=== PATIENT | male | born 1980 | race Caucasian/White ===

== ENCOUNTER 2020-02-24 08:52 | Outpatient (REF) | payer BC, SELFPAY ==
--- NOTE | 2020-02-24 09:00 | MR_ITS ---
EXAMINATION: MRI LEFT SHOULDER WITHOUT CONTRAST CLINICAL INFORMATION: Left shoulder pain. COMPARISON: Radiograph dated 01/11/2020 TECHNIQUE: MR images of the shoulder were obtained on a 1.5 Belle high-field strength scanner without intravenous contrast material. FINDINGS: ROTATOR CUFF: Intact. No muscle atrophy or fatty infiltration. BICEPS: Normal CORACOACROMIAL ARCH: The undersurface of the acromion is remodeled, consistent with prior acromioplasty. Cortical irregularity is evident at the acromial margin of the AC joint, likely due to prior debridement.No subacromial subdeltoid bursitis. LABRUM/CAPSULE: A blunted, small appearance of the posterior and inferior labrum is likely due in part to developmental variation. A superimposed degenerative tear of the inferior labrum is suspected between the anteroinferior 5 o'clock position and the posteroinferior 7 o'clock position. Labrum is otherwise unremarkable. Joint capsule is normal. GLENOHUMERAL JOINT/MARROW: There is mild chondral thinning and fissuring at the glenoid inferiorly with small glenoid marginal osteophytes. Additional mild chondral thinning and surface irregularity are present at the humeral head anterosuperiorly and superomedially. There is a 1.2 x 0.5 x 1.3 cm low signal intensity loose body in the anterior recess of the joint along the anterior glenoid margin. Smaller low signal intensity loose bodies in the axillary pouch cannot be excluded. MR/MR shoulder LT wo con IMPRESSION: 1. A 1.3 cm low signal intensity loose body is present in the anterior joint recess. 2. 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 3. Status post acromioplasty. 4. Normal rotator cuff.
== END 2020-02-24 08:53 | disposition home or self-care (01) ==
LOC: HO.MRI 08:52
PROVIDERS: PCP Internal Medicine; Visit Provider Internal Medicine
DX: M25.512 Pain in left shoulder (principal)
CPT/HCPCS: 73221

== ENCOUNTER 2020-04-11 08:37 | Emergency (ER) | payer BC, SELFPAY ==
--- NOTE | 2020-04-11 | ECG_ITS ---
Test Reason : CP Blood Pressure : / mmHG Vent. Rate : 080 BPM Atrial Rate : 080 BPM P-R Int : 140 ms QRS Dur : 104 ms QT Int : 388 ms P-R-T Axes : 059 066 045 degrees QTc Int : 447 ms Normal sinus rhythm with sinus arrhythmia Normal ECG When compared with ECG of 03-JAN-2020 10:03, No significant change was found Referred By: Generic ED Physician Electronically Signed By:Jeremy Hannon
[2020-04-11 08:52] VITALS: BP 147/95; PULSE 89; RESP 18; TEMP 36.5; O2SAT 98; BMI 29.0
--- NOTE | 2020-04-11 09:15 | XR_ITS ---
EXAMINATION: XR CHEST CLINICAL INFORMATION: Chest pain COMPARISON: 12/01/2019 TECHNIQUE: Frontal view of the chest was obtained. FINDINGS: Normal cardiac and mediastinal silhouette. Lungs are clear. No focal consolidation, effusion, edema pneumothorax. Stable small likely calcified nodule in the left lower lobe. XR/XR chest 1V IMPRESSION: No evidence of acute cardiopulmonary process.
--- NOTE | 2020-04-11 09:15 | ED_ITS ---
HPI - Chest Pain General Chief Complaint: Chest Pain Stated Complaint: chest tightness,numbness left arm Time Seen by Provider: 04/11/20 09:14 Source: patient Mode of arrival: ambulatory Limitations: no limitations History of Present Illness MD complaint: chest pain Pertinent past history: other (similar episodes in past seen Cardiology negative workup) Onset (ago): hour(s) (2.5) Timing of current episode: constant Prior episodes: Yes Onset: during rest Pain location: left chest Pain radiation: left arm Severity: mild Quality: tightness Relieving factors: nothing Exacerbating factors: inspiration and movement Context: other (starts after he takes his testosterone injection has happened in the past as well) Associated symptoms: dyspnea Treatment prior to arrival: none Related Data Allergies Allergy/AdvReac Type Severity Reaction Status Date / Time FLU VACCINE AdvReac Rash Uncoded 04/11/20 08:59 Review of Systems Review of Systems: Constitutional : No Weight loss, No Fever, No Chills ENT/Mouth : No sore throat, No Rhinorrhea Eyes: No Eye Pain, No Swelling Cardiovascular : pos Chest Pain, pos SOB, no Dyspnea on Exertion, No Orthopnea, No Edema, No Palpitations Respiratory : No Cough, No Sputum Gastrointestinal : pos Nausea, No Vomiting, No Diarrhea, No abdominal Pain, No Hematochezia, No Melena Genitourinary : No Dysuria, No Urinary Frequency Musculoskeletal : No joint pain, No Myalgias, No Joint Swelling Skin : No Skin Lesions, No rash Neuro : No Weakness, No Numbness, No Dizziness, No Headache Psych : No Anxiety/Panic, No Depression Heme/Lymph: No Bruising, No Lymphadenopathy Endocrine : No Polyuria, No Polydipsia All other systems reviewed and are negative [facility] Past Medical History Attestation statement: The following information was validated with the patient. Medical History Hypertension Surgical History H/O shoulder surgery Social History Social History (Updated 04/11/20 @ 09:37 by Devorah Partida DO) Alcohol intake: never Smoking Status: Never smoker Use of substances other than those prescribed or required for medical reasons: No Advance Directives: No Advance Directives Information Provided: No Physical Exam Vital Signs: Vital Signs: Last Vital Signs Temp 97.7 F 12/14/20 08:52 Pulse 92 04/11/20 09:29 Resp 18 04/11/20 08:52 BP 146/99 H 04/11/20 09:29 Pulse Ox 97 04/11/20 09:29 Body Mass Index 29.0 Appearance: Alert. Oriented X3. No acute distress. Eyes: Pupils equal, round and reactive to light. ENT: Pharynx normal. Neck: Normal inspection. Neck supple. CVS: Normal heart rate and rhythm. Pulses normal. Respiratory: No respiratory distress. Breath sounds normal. Chest: ttp along L pectoralis Abdomen: Soft and nontender. Skin: Skin warm and dry. Normal skin color. Normal skin turgor. Extremities: No lower extremity edema. No calf ttp Neuro: Oriented X 3. No motor deficit. No sensory deficit. Course Course Course Narrative: negative workup, negative EKG, troponin negative at almost 3 hours aamir, neg ddimer - stable for DC MDM - Chest Pain MDM Narrative Medical decision making narrative: 40 yo male with HTN and hx of chest pain now associates it with his testosterone injections, will need labs, EKG, CXR, troponin, ddimer - seems like it could be [facility] has had this worked up in the past with negative results, seems very atypical for ACS Lab Data Result diagrams: 04/11/20 09:38 04/11/20 09:38 Labs: Lab Results 04/11/20 04/11/20 04/11/20 Range/Units 09:38 09:38 09:38 WBC 9.7 (4.8-10.8) X10*3/uL RBC 5.62 (4.60-5.80) X10*6/uL Hgb 16.4 (14.0-18.0) g/dl Hct 47.5 (42-52) % MCV 84.5 (80-98) fL MCH 29.2 (27.0-33.0) pg MCHC 34.5 (31.0-36.0) g/dl RDW 12.6 (11.0-16.0) % Plt Count 328 (160-400) X10*3/uL MPV 8.9 L (9.4-12.4) fL Immature Gran % (Auto) 0.2 (0.0-0.4) % Neut % (Auto) 68.5 (45-73) % Lymph % (Auto) 19.8 L (20-40) % Nuckolls % (Auto) 8.5 (2-11) % Eos % (Auto) 2.8 (0-4) % Baso % (Auto) 0.2 (0-2) % Lymph # (Auto) 1.9 (1.2-4.9) X10*3/uL [place]uckolls # (Auto) 0.8 (0.1-1.2) X10*3/uL Eos # (Auto) 0.3 (0.0-0.4) X10*3/uL Baso # (Auto) 0.0 (0.0-0.2) X10*3/uL Abs Immat Gran (auto) 0.02 (0.00-0.03) X10*3/uL Absolute Neuts (auto) 6.6 (2.0-8.3) X10*3/uL Absolute Nucleated RBC 0.000 (0.0-0.012) X10*3/uL Nucleated RBC % (auto) 0.0 (0.0-0.2) /100WBC D-Dimer < 200 NG/ML Sodium 139 (135-145) mmol/L Potassium 4.3 (3.3-5.1) mmol/l Chloride 107 (96-108) mmol/L Carbon Dioxide 23 (22-29) mmol/L Anion Gap 13 (12-20) BUN 8 L (9-16) mg/dL Creatinine 0.89 (0.5-1.4) mg/dL Estim Creat Clear Calc 135.7 Estimated GFR > 60 Random Glucose 103 (60-115) mg/dL Calcium 9.3 (8.4-10.2) mg/dL Magnesium 2.1 (1.6-2.6) mg/dL Total Bilirubin 0.4 (0.0-1.0) mg/dL Direct Bilirubin 0.2 (0.0-0.5) mg/dL AST 20 (5-37) U/L ALT 41 H (0-40) U/L Alkaline Phosphatase 69 (39-117) U/L Troponin I High Sens (<3.5-35.0) ng/L Total Protein 7.1 (6.5-8.0) g/dL Albumin 4.9 (3.5-5.0) g/dL Lipase 31 (8-78) U/L 04/11/20 Range/Units 09:38 WBC (4.8-10.8) X10*3/uL RBC (4.60-5.80) X10*6/uL Hgb (14.0-18.0) g/dl Hct (42-52) % MCV (80-98) fL MCH (27.0-33.0) pg MCHC (31.0-36.0) g/dl RDW (11.0-16.0) % Plt Count (160-400) X10*3/uL MPV (9.4-12.4) fL Immature Gran % (Auto) (0.0-0.4) % Neut % (Auto) (45-73) % Lymph % (Auto) (20-40) % Nuckolls % (Auto) (2-11) % Eos % (Auto) (0-4) % Baso % (Auto) (0-2) % Lymph # (Auto) (1.2-4.9) X10*3/uL Nuckolls # (Auto) (0.1-1.2) X10*3/uL Eos # (Auto) (0.0-0.4) X10*3/uL Baso # (Auto) (0.0-0.2) X10*3/uL Abs Immat Gran (auto) (0.00-0.03) X10*3/uL Absolute Neuts (auto) (2.0-8.3) X10*3/uL Absolute Nucleated RBC (0.0-0.012) X10*3/uL Nucleated RBC % (auto) (0.0-0.2) /100WBC D-Dimer NG/ML Sodium (135-145) mmol/L Potassium (3.3-5.1) mmol/l Chloride (96-108) mmol/L Carbon Dioxide (22-29) mmol/L Anion Gap (12-20) BUN (9-16) mg/dL Creatinine (0.5-1.4) mg/dL Estim Creat Clear Calc Estimated GFR Random Glucose (60-115) mg/dL Calcium (8.4-10.2) mg/dL Magnesium (1.6-2.6) mg/dL Total Bilirubin (0.0-1.0) mg/dL Direct Bilirubin (0.0-0.5) mg/dL AST (5-37) U/L ALT (0-40) U/L Alkaline Phosphatase (39-117) U/L Troponin I High Sens < 3.5 (<3.5-35.0) ng/L Total Protein (6.5-8.0) g/dL Albumin (3.5-5.0) g/dL Lipase (8-78) U/L ECG Data ECG #1: Attestation: I personally reviewed and interpreted this ECG as follows: ECG interpretation date: 04/11/20 Interpretation: Rate: 80 Rhythm: NSR Ech[place]: normal Normal P waves. Normal SUPRIYA. Normal QRS complex. ST T wave : normal qTC: normal prior studies: no acute ischemia The study has been interpreted contemporaneously by me. . Discharge Plan Discharge Clinical Impression: Atypical chest pain Patient Disposition: Home, Self-Care Instructions: Chest Pain (ED) Additional Instructions: return to ED for any worsening symptoms or concerns hold your testosterone shots until you discuss with your doctor Referrals: Aamir Can MD [Primary Care Provider] - 1 day Stand Alone Forms: Work/School Release
[2020-04-11 09:29] VITALS: BP 146/99; PULSE 92; O2SAT 97
[2020-04-11 09:47] LABS: MANUAL DIFF FLAG NO
[2020-04-11 09:50] LABS: Basophils Percent Auto 0.2 % (0-2); Eosinophils Absolute Auto 0.3 X10*3/uL (0.0-0.4); Eosinophils Percent Auto 2.8 % (0-4); Hematocrit 47.5 % (42-52); Hemoglobin 16.4 g/dl (14.0-18.0); Imm Gran Abs Auto 0.02 X10*3/uL (0.00-0.03); Imm Gran Pct Auto 0.2 % (0.0-0.4); Lymphocytes Absolute Auto 1.9 X10*3/uL (1.2-4.9); Lymphocytes Percent Auto 19.8 % (20-40); Mean Corpuscular HGB Conc 34.5 g/dl (31.0-36.0); Mean Corpuscular Hemoglobin 29.2 pg (27.0-33.0); Mean Corpuscular Volume 84.5 fL (80-98); Mean Platelet Volume 8.9 fL (9.4-12.4); Monocytes Absolute Auto 0.8 X10*3/uL (0.1-1.2); Monocytes Percent Auto 8.5 % (2-11); Neutrophils Absolute Auto 6.6 X10*3/uL (2.0-8.3); Neutrophils Percent Auto 68.5 % (45-73); Platelet Count 328 X10*3/uL (160-400); Red Blood Count 5.62 X10*6/uL (4.60-5.80); Red Cell Distribution Width 12.6 % (11.0-16.0); White Blood Count 9.7 X10*3/uL (4.8-10.8)
[2020-04-11 10:04] LABS: D Dimer < 200 NG/ML
[2020-04-11 10:12] LABS: Alanine Aminotransferase 41 U/L (0-40); Albumin Level 4.9 g/dL (3.5-5.0); Alkaline Phosphatase 69 U/L (39-117); Anion Gap 13 (12-20); Aspartate Amino Transferase 20 U/L (5-37); Bilirubin Direct 0.2 mg/dL (0.0-0.5); Bilirubin Total 0.4 mg/dL (0.0-1.0); Blood Urea Nitrogen 8 mg/dL (9-16); Calcium 9.3 mg/dL (8.4-10.2); Carbon Dioxide 23 mmol/L (22-29); Chloride 107 mmol/L (96-108); Creatinine Clr Calc Pharmacy 135.7; Estimated Glomerular Filt Rate > 60; Glucose Random 103 mg/dL (60-115); Lipase 31 U/L (8-78); Magnesium 2.1 mg/dL (1.6-2.6); Potassium 4.3 mmol/l (3.3-5.1); Sodium 139 mmol/L (135-145); Total Protein 7.1 g/dL (6.5-8.0)
[2020-04-11 10:19] LABS: Troponin-I High Sensitivity < 3.5 ng/L (<3.5-35.0)
[2020-04-11 10:38] VITALS: BP 145/88; PULSE 88; O2SAT 98
== END 2020-04-11 10:40 | disposition home or self-care (01) ==
PROVIDERS: Emergency Provider Emergency Medicine; PCP Internal Medicine
DX: R07.89 Other chest pain (principal); I10 Essential (primary) hypertension
CPT/HCPCS: 36415; 71045; 80048; 80076; 83690; 83735; 84484; 85025; 85379; 93005; 99284

== ENCOUNTER 2020-04-15 10:44 | Outpatient (REF) | payer BC, SELFPAY ==
[2020-04-21 10:57] LABS: Testosterone, Free 98.8 pg/mL (35.0-155.0); Testosterone, Total 417 ng/dL (250-1100)
== END 2020-04-15 10:45 | disposition home or self-care (01) ==
LOC: HO.MANLDS 10:44
PROVIDERS: PCP Internal Medicine; Visit Provider Physician Assistant
DX: Z79.890 Hormone replacement therapy (principal)
CPT/HCPCS: 84402; 84403

== ENCOUNTER 2021-04-07 11:56 | Emergency (ER) | payer BC, SELFPAY ==
[2021-04-07 12:11] VITALS: BP 142/107; PULSE 99; RESP 16; TEMP 36.8; O2SAT 97; BMI 31.8
--- NOTE | 2021-04-07 12:21 | ECG_ITS ---
Test Reason : CHEST PAIN Blood Pressure : / mmHG Vent. Rate : 085 BPM Atrial Rate : 085 BPM P-R Int : 142 ms QRS Dur : 100 ms QT Int : 380 ms P-R-T Axes : 049 055 036 degrees QTc Int : 452 ms Normal sinus rhythm Normal ECG When compared with ECG of 11-APR-2020 09:07, No significant change was found Referred By: Generic ED Physician Electronically Signed By:Jeremy Hannon
--- NOTE | 2021-04-07 16:44 | ED_ITS ---
HPI - Chest Pain General Chief Complaint: Chest Pain Stated Complaint: chest pain into l arm Time Seen by Provider: 04/07/21 16:44 Source: patient Mode of arrival: ambulatory Limitations: no limitations History of Present Illness HPI narrative: Patient with no significant past medical history he used to have borderline hypertension was taking lisinopril which was stopped last year per PCP as blood pressure was well controlled after losing weight. Since yesterday patient was doing weightlifting and noticed pain in the left pectoral area especially on movement and taking deep breath and palpation pain also was feeling in the left shoulder. Also patient noticed his heart rate was fluctuating between 60-110. no syncope or dizziness Related Data Allergies Allergy/AdvReac Type Severity Reaction Status Date / Time FLU VACCINE AdvReac Rash Uncoded 04/11/20 08:59 Review of Systems Review of Systems: Yes all other systems are reviewed and are negative [facility] Past Medical History Medical History Hypertension Surgical History H/O shoulder surgery Social History Social History Alcohol intake: never Advance Directives: No Advance Directives Information Provided: Yes Physical Exam Vital Signs: Vital Signs: Last Vital Signs Temp 98.3 F 04/07/21 12:11 Pulse 73 04/07/21 17:06 Resp 16 04/07/21 17:06 BP 152/101 H 04/07/21 17:06 Pulse Ox 97 04/07/21 12:11 BMI result Body Mass Index 31.8 Appearance: Alert. Oriented X3. No acute distress. ENT: Pharynx normal. Oral Mucosa moist Neck: Normal inspection. Neck supple. CVS: Normal heart rate and rhythm. Pulses normal. No murmur rub or gallop occasional PACs Respiratory: No respiratory distress. Equal air entry bilateral, no wheezing/rales/rhonchi left anterior chest wall tenderness++ Abdomen: Soft and nontender. Bowel sounds are present, no mass palpable, no CVA tenderness Skin: Skin warm and dry. Normal skin color. Normal skin turgor. Extremities: No lower extremity edema. No calf tenderness Neuro: Oriented X 3. MDM - Chest Pain MDM Narrative Medical decision making narrative: Patient with atypical muscular left chest wall pain during stay in the ER patient had skipped beats without any dizziness or syncope patient advised to follow with elementary supervisor for further evaluation. Patient denies any history of sudden cardiac . Patient's blood pressure improved to 142/85 doing stay in the ER advised to follow-up with PCP /cardio Medical Records Data Attestation: I reviewed the patient's medical records. Lab Data Attestation: I reviewed the patient's lab results. Result diagrams: 04/07/21 17:04 04/07/21 17:04 Labs: Lab Results 04/07/21 04/07/21 04/07/21 Range/Units 17:04 17:04 17:04 WBC 10.5 (4.8-10.8) X10*3/uL RBC 5.28 (4.60-5.80) X10*6/uL Hgb 15.6 (14.0-18.0) g/dl Hct 45.1 (42.0-52.0) % MCV 85.4 (80.0-98.0) fL MCH 29.5 (27.0-33.0) pg MCHC 34.6 (31.0-36.0) g/dl RDW 13.3 (11.0-16.0) % Plt Count 279 (160-400) X10*3/uL MPV 8.8 L (9.4-12.4) fL Immature Gran % (Auto) 0.3 (0.0-0.4) % Neut % (Auto) 71.7 (45-73) % Lymph % (Auto) 19.6 L (20-40) % [place] % (Auto) 6.9 (2-11) % Eos % (Auto) 1.3 (0-4) % Baso % (Auto) 0.2 (0-2) % Lymph # (Auto) 2.1 (1.2-4.9) X10*3/uL [place] # (Auto) 0.7 (0.1-1.2) X10*3/uL Eos # (Auto) 0.1 (0.0-0.4) X10*3/uL Baso # (Auto) 0.0 (0.0-0.2) X10*3/uL Abs Immat Gran (auto) 0.03 (0.00-0.03) X10*3/uL Absolute Neuts (auto) 7.5 (2.0-8.3) x10*3/uL Absolute Nucleated RBC 0.000 (0.0-0.012) X10*3/uL Nucleated RBC % (auto) 0.0 (0.0-0.2) /100WBC Sodium 140 (135-145) mmol/L Potassium 4.1 (3.3-5.1) mmol/L Chloride 108 (96-108) mmol/L Carbon Dioxide 24 (22-29) mmol/L Anion Gap 12 (12-20) BUN 13 (9-16) mg/dL Creatinine 0.85 (0.5-1.4) mg/dL Estim Creat Clear Calc 142.8 Estimated GFR > 60 Random Glucose 93 (60-115) mg/dL Calcium 10.1 D (8.4-10.2) mg/dL Troponin I High Sens < 3.5 (<3.5-35.0) ng/L ECG Data ECG #1: Attestation: I personally reviewed and interpreted this ECG as follows: Interpretation: Normal sinus rhythm heart rate is 85 beats per minute normal interval normal axis no acute ST-T changes no acute skin Discharge Plan Discharge Clinical Impression: Musculoskeletal chest pain, Essential hypertension Patient Disposition: Home, Self-Care Instructions: Hypertension (ED), Chest Wall Pain (ED) Additional Instructions: Check blood pressure at home if it is higher than 140/90 start taking your blood pressure medication Your pain is likely musculoskeletal take Tylenol/ibuprofen for pain You have some skipped beats etiology not very clear which is not life- threatening. Report to the ER/PCP if you have passing out episode Avoid salt and caffeine drinks Referrals: Jeremy Hannon MD [Physician] - 1 week Interventions: ED Discharge Assessment Last Done: 04/07/21 18:16 Discharge Date/Time: 04/07/21 18:16
[2021-04-07 17:06] VITALS: BP 152/101; PULSE 73; RESP 16
[2021-04-07 17:08] LABS: Basophils Percent Auto 0.2 % (0-2); Eosinophils Absolute Auto 0.1 X10*3/uL (0.0-0.4); Eosinophils Percent Auto 1.3 % (0-4); Hematocrit 45.1 % (42.0-52.0); Hemoglobin 15.6 g/dl (14.0-18.0); Imm Gran Abs Auto 0.03 X10*3/uL (0.00-0.03); Imm Gran Pct Auto 0.3 % (0.0-0.4); Lymphocytes Absolute Auto 2.1 X10*3/uL (1.2-4.9); Lymphocytes Percent Auto 19.6 % (20-40); MANUAL DIFF FLAG NO; Mean Corpuscular HGB Conc 34.6 g/dl (31.0-36.0); Mean Corpuscular Hemoglobin 29.5 pg (27.0-33.0); Mean Corpuscular Volume 85.4 fL (80.0-98.0); Mean Platelet Volume 8.8 fL (9.4-12.4); Monocytes Absolute Auto 0.7 X10*3/uL (0.1-1.2); Monocytes Percent Auto 6.9 % (2-11); Neutrophils Absolute Auto 7.5 x10*3/uL (2.0-8.3); Neutrophils Percent Auto 71.7 % (45-73); Platelet Count 279 X10*3/uL (160-400); Red Blood Count 5.28 X10*6/uL (4.60-5.80); Red Cell Distribution Width 13.3 % (11.0-16.0); White Blood Count 10.5 X10*3/uL (4.8-10.8)
[2021-04-07 17:30] LABS: Troponin-I High Sensitivity < 3.5 ng/L (<3.5-35.0)
[2021-04-07 17:32] LABS: Anion Gap 12 (12-20); Blood Urea Nitrogen 13 mg/dL (9-16); Calcium 10.1 mg/dL (8.4-10.2); Carbon Dioxide 24 mmol/L (22-29); Chloride 108 mmol/L (96-108); Creatinine Clr Calc Pharmacy 142.8; Estimated Glomerular Filt Rate > 60; Glucose Random 93 mg/dL (60-115); Potassium 4.1 mmol/L (3.3-5.1); Sodium 140 mmol/L (135-145)
== END 2021-04-07 18:16 | disposition home or self-care (01) ==
PROVIDERS: Emergency Provider Internal Medicine; PCP Internal Medicine
DX: R07.89 Other chest pain (principal); I10 Essential (primary) hypertension; Z79.899 Other long term (current) drug therapy
CPT/HCPCS: 36415; 80048; 84484; 85025; 93005; 99283

== ENCOUNTER 2022-10-02 12:18 | Outpatient (REF) | payer BC, SELFPAY ==
[2022-10-02 18:02] LABS: MANUAL DIFF FLAG NO
[2022-10-02 18:27] LABS: Basophils Percent Auto 0.1 % (0-2); Eosinophils Absolute Auto 0.2 X10*3/uL (0.0-0.4); Hematocrit 42.6 % (42.0-52.0); Hemoglobin 14.1 g/dl (14.0-18.0); Imm Gran Abs Auto 0.03 X10*3/uL (0.00-0.03); Imm Gran Pct Auto 0.4 % (0.0-0.4); Lymphocytes Absolute Auto 1.8 X10*3/uL (1.2-4.9); Lymphocytes Percent Auto 26.5 % (20-40); Mean Corpuscular HGB Conc 33.1 g/dl (31.0-36.0); Mean Corpuscular Hemoglobin 29.5 pg (27.0-33.0); Mean Corpuscular Volume 89.1 fL (80.0-98.0); Monocytes Absolute Auto 0.6 X10*3/uL (0.1-1.2); Monocytes Percent Auto 8.5 % (2-11); Neutrophils Absolute Auto 4.1 x10*3/uL (2.0-8.3); Neutrophils Percent Auto 61.5 % (45-73); Platelet Count 280 X10*3/uL (160-400); Red Blood Count 4.78 X10*6/uL (4.60-5.80); Red Cell Distribution Width 13.8 % (11.0-16.0); White Blood Count 6.7 X10*3/uL (4.8-10.8)
[2022-10-03 04:07] LABS: Alanine Aminotransferase 64 U/L (0-40); Albumin Level 4.3 g/dL (3.5-5.0); Alkaline Phosphatase 67 U/L (39-117); Anion Gap 12 (12-20); Aspartate Amino Transferase 25 U/L (5-37); Bilirubin Total 0.8 mg/dL (0.0-1.0); Blood Urea Nitrogen 10 mg/dL (9-16); Calcium 9.6 mg/dL (8.4-10.2); Carbon Dioxide 25 mmol/L (22-29); Chloride 108 mmol/L (96-108); Cholesterol 220 mg/dL; Estimated Glomerular Filt Rate > 60; Glucose Random 84 mg/dL (60-115); HDL Cholesterol 42 mg/dL; Iron 100 mcg/dL (45-160); LDL Cholesterol Calculated 159 mg/dl; Magnesium 2.2 mg/dL (1.6-2.6); Percent Iron Saturation 37 % (15-50); Potassium 4.2 mmol/L (3.3-5.1); Sodium 141 mmol/L (135-145); Total Iron Binding Capacity 273 mcg/dL (228-428); Total Protein 6.3 g/dL (6.5-8.0); Triglycerides 99 mg/dL; Unsaturated Iron Binding 173 ug/dL
[2022-10-03 04:36] LABS: Ferritin 297 ng/mL (20-250); Free T4 (Free Thyroxine) 0.77 ng/dL (0.71-1.85); Prostate Specific Antigen 0.36 ng/mL (<0.05-4.0); Thyroid Stimulating Hormone 1.03 uIU/mL (0.32-4.0); Vitamin B12 289 pg/mL (200-900); Vitamin D 25-OH Total 27.4 ng/mL (>30)
[2022-10-03 05:14] LABS: Estimated Average Glucose 97 mg/dL
[2022-10-06 01:43] LABS: Zinc 70 mcg/dL (60-130)
[2022-10-06 12:59] LABS: Vitamin B6 17.5 ng/mL (2.1-21.7)
[2022-10-09 17:48] LABS: Testosterone, Free 45.1 pg/mL (35.0-155.0); Testosterone, Total 255 ng/dL (250-1100)
== END 2022-10-02 12:19 | disposition home or self-care (01) ==
LOC: HO.MANLDS 12:18
PROVIDERS: Visit Provider Physician Assistant
DX: Z00.00 Encounter for general adult medical examination without abnormal findings (principal); Z12.5 Encounter for screening for malignant neoplasm of prostate; R53.83 Other fatigue; K14.1 Geographic tongue; Z83.3 Family history of diabetes mellitus; Z82.49 Family history of ischemic heart disease and other diseases of the circulatory system
CPT/HCPCS: 36415; 80053; 80061; 82306; 82607; 82728; 82746; 83036; 83540; 83735; 84153; 84207; 84402; 84403; 84439; 84443; 84630; 85025

== ENCOUNTER 2024-10-19 10:24 | Emergency (ER) | payer BC, SELFPAY ==
--- NOTE | ~2024-10-19 | XR_ITS ---
EXAMINATION: XR CHEST CLINICAL INFORMATION: chest pain COMPARISON: 04/11/2020 TECHNIQUE: 2 views of the chest were obtained. FINDINGS: The cardiac, hilar, and mediastinal contours are normal. On the lateral projection, there is minimal blunting of the left posterior costophrenic sulcus, suggestive of tiny effusion. The lungs are otherwise clear bilaterally. There is no focal osseous or soft tissue abnormality. XR/XR chest 2V IMPRESSION: 1. Suggestion of tiny left pleural effusion. 2. Otherwise, lungs appear clear. Electronically signed by: Josef Phelps MD 10/19/2024 11:30 AM EDT
--- NOTE | ~2024-10-19 | CT_ITS ---
CLINICAL HISTORY: Carotid dissection? swelling cracked his own neck. --- Additional Notes or Special Instructions: carotid dissection? CT Head without contrast. CT angiography head and neck with contrast. 3D Postprocessing. Comparison: None provided Findings: HEAD CT: No intra-axial mass, midline shift, hydrocephalus, or acute hemorrhage. No significant atrophy-like change or white matter disease. The visualized paranasal sinuses and mastoid air cells are normal. The orbits are within normal limits. There is no acute fracture. HEAD AND NECK CTA: Aortic arch and cervical great vessels are patent. Intracranial arteries are patent. No aneurysm, dissection, or occlusion. No abnormal intracranial enhancement. The visualized thyroid gland is unremarkable. No cervical mass or fluid collection. Lung apices clear. No acute fracture. IMPRESSION: 1. Unremarkable head CT. 2. Patent head and neck CTA. This document has been electronically signed by: Tyler Uriostegui MD on 10/19/2024 20:13:13
--- NOTE | 2024-10-19 10:26 | ECG_ITS ---
Test Reason : cp Blood Pressure : */* mmHG Vent. Rate : 69 BPM Atrial Rate : 69 BPM P-R Int : 144 ms QRS Dur : 98 ms QT Int : 392 ms P-R-T Axes : 30 16 27 degrees QTcB Int : 420 ms Normal sinus rhythm with sinus arrhythmia Normal ECG When compared with ECG of 07-Apr-2021 12:37, No significant change was found Referred By: Generic ED Physician Electronically Signed By: MAYA TAYLOR
[2024-10-19 10:51] VITALS: BP 151/97; PULSE 73; RESP 18; TEMP 36.8; O2SAT 97; BMI 32.9
--- NOTE | 2024-10-19 10:55 | ED_ITS ---
HPI - General Adult General Chief complaint: Chest Pain Stated complaint: Chest Pain Pain in Jaw since 0530 Time Seen by Provider: 10/19/24 13:07 Source: patient Mode of arrival: ambulatory Limitations: no limitations History of Present Illness ED Provider: Peter Rick HPI narrative: 44 yold male past medical history of shoulder rotator cuff repair labrum repair, cervical spine fusion presents to ED for left jaw left shoulder left chest pain that happened suddenly while driving to a . Patient denies any pleurisy, calf pain, weakness or dizziness. Patient presently is asymptomatic. Patient states he has not episode once a year and has had multiple cardiac workup that was normal. Patient denies any history of drug use. Related Data Allergies Allergy/AdvReac Type Severity Reaction Status Date / Time FLU VACCINE AdvReac Rash Uncoded 10/19/24 10:54 Review of Systems 2 Review of Systems: Resolved chest pain Yes all other systems are reviewed and are negative PMFSH Past Medical History Medical History Hypertension Surgical History H/O shoulder surgery Social History Social History Alcohol intake: never Smoked in Last 30 Days: Yes Use of substances other than those prescribed or required for medical reasons: Yes Substance Use Type: Marijuana Substance Use Frequency: Occasionally Advance Directives: No Advance Directives Information Provided: Yes Physical Exam ED Vital Signs: Vital Signs - 24 hr 10/19/24 10:51 10/19/24 12:52 10/19/24 15:53 Temperature 98.3 F 98.3 F Pulse Rate 73 66 64 Respiratory Rate 18 18 15 Blood Pressure 151/97 H 128/80 138/84 Pulse Oximetry 97 97 96 Oxygen Delivery Method Room Air Room Air 10/19/24 18:00 10/19/24 20:17 10/19/24 20:47 Temperature 0 F L Pulse Rate 66 55 55 Respiratory Rate 17 15 15 Blood Pressure 145/97 H 144/95 H 144/95 H Pulse Oximetry 96 95 95 Oxygen Delivery Method Room Air Room Air Room Air BMI result Body Mass Index 32.9 Const General: cooperative, healthy appearing, comfortable, no acute distress, well developed, alert, awake and Physically active Orientation/consciousness: patient oriented x3 [facility] Head: Yes normal to inspection, Yes No palpable skull fracture present, Yes normocephalic and Yes atraumatic Eyes General: appearance normal, both eyes and all related structures Neck Neck: Yes normal visual inspection, Yes full ROM, Yes no lymphadenopathy, Yes no meningeal signs, Yes trachea midline, Yes supple, No anterior neck swelling and No tender Chest Chest palpation & inspection: normal inspection of the chest and normal palpation of entire chest wall Resp Effort & Inspection: normal respiratory effort and able to speak in complete sentences Cardio Jugular venous distension: no JVD Heart sounds: S1 normal heart sound present and S2 normal heart sound present GI Inspection: Yes normal to inspection Palpation (GI): Soft to palpation, not firm, nontender, no guarding and not rigid General: Yes no CVA tenderness Back/Spine/Pelvis Back: no CVA tenderness and No back tenderness Skin General skin exam: no rashes or lesions noted, elasticity normal and turgor normal Neuro General: patient oriented x3, gait normal, tone normal, moves all extremities, Normal light touch and pain sensation, no meningeal signs, no focal motor deficits, CN's II-XI intact bilaterally and normal sensation to monofilament Extrem General: Yes normal to inspection, Yes full ROM and Yes capillary refill normal Psych Appearance: grossly normal, well kempt and not disheveled Course Course Course Narrative: This is an RME: Additional HPI, ROS, PE not included below will be deferred to primary provider. RME assessment and note performed by: Viola Garcia PA-C This is a 44-year-old male who presents emergency department with concerns of sudden onset of left-sided jaw pain radiating to neck, and left shoulder as well as left-sided chest pain. No dizziness, shortness for breath or diaphoresis. He states that he has had history of chronic shoulder surgeries, crushed cervical vertebrae. Plan: Labs, chest x-ray, further ER evaluation needed. Reevaluation(s) Reevaluation #1: patient received in sign-out at change of shift pending CT angiography of the neck and head. The CTA was essentially unremarkable with patent arteries throughout. I discussed these finding with the patient and he will follow up with his primary doctor. Time: 20:28 Medications Administered Discontinued Medications Generic Name Dose Route Start Last Admin Trade Name Freq PRN Reason Stop Dose Admin Iohexol 70 ml 10/19/24 19:25 10/19/24 19:26 Iohexol 350 Mg/Ml 100 Ml Infus..Btl IV 10/19/24 19:26 70 ml ONCE ONE Administration Medical Decision Making Medical Decision Making [facility] Narrative: 44-year-old male presents to ED for resolved left-sided chest pain. Patient has had jaw neck and left shoulder pain going chest. Patient denies any pleurisy recent long travel or recent surgery. Patient denies any numbness/paralysis/tingling of upper or lower extremities, or urinary/bowel incontinence. Patient denies any swelling of extremities. EKG 2 troponins D- dimer negative. Perc score is 0. Heart score is 0. Patient explained worrisome signs and informed to return to the ED immediately. Not suspecting PE, CHF, myocarditis, pericarditis, aortic dissection, AAA aneurysm, cardiac tamponade, carotid dissection, epidural abscess, cauda equinus syndrome or any other life threatening etiology.. 5:23pm: I was called to the room patient stating he has right lateral neck pain that is severe and thinks it swollen. Positive for tenderness on palpation from right jaw down right neck up to clavicle. Patient state this has been occurring the past 40 minutes. Patient did crack his neck to relief pain about 40 minutes ago. I do not see any swelling but due to tenderness of right side of neck and patient's cracking in his neck will send for head CT and make sure there is no carotid dissection. Sign out to MARTIN DUMONT. Differential Diagnosis Differential Diagnoses: The differential diagnosis associated with the presentation includes (Chest pain, pneumonia, PE, IL) Admission/Observation Consideration of admission/observation: Escalation of care including admission/observation considered Lab Data [facility] Lab Attestation statement: I reviewed the patient's lab results. 10/19/24 11:09 10/19/24 11:09 Labs: Lab Results 10/19/24 10/19/24 Range/Units 11:09 14:55 WBC 7.4 (4.8-10.8) X10*3/uL RBC 4.97 (4.60-5.80) X10*6/uL Hgb 14.7 (14.0-18.0) g/dl Hct 41.9 L (42.0-52.0) % MCV 84.3 (80.0-98.0) fL MCH 29.6 (27.0-33.0) pg MCHC 35.1 (31.0-36.0) g/dl RDW 13.3 (11.0-16.0) % Plt Count 278 (160-400) X10*3/uL MPV 8.9 L (9.4-12.4) fL Immature Gran % (Auto) 0.5 H (0.0-0.4) % Neut % (Auto) 70.9 (45-73) % Lymph % (Auto) 16.8 L (20-40) % [place]ton % (Auto) 7.5 (2-11) % Eos % (Auto) 3.9 (0-4) % Baso % (Auto) 0.4 (0-2) % Lymph # (Auto) 1.3 (1.2-4.9) X10*3/uL Overton # (Auto) 0.6 (0.1-1.2) X10*3/uL Eos # (Auto) 0.3 (0.0-0.4) X10*3/uL Baso # (Auto) 0.0 (0.0-0.2) X10*3/uL Abs Immat Gran (auto) 0.04 H (0.00-0.03) X10*3/uL Absolute Neuts (auto) 5.3 (2.0-8.3) x10*3/uL Absolute Nucleated RBC 0.000 (0.0-0.012) X10*3/uL Nucleated RBC % (auto) 0.0 (0.0-0.2) /100WBC PT 10.2 L (10.9-12.4) SEC INR 0.9 (0.9-1.1) APTT 31.4 (26.0-36.8) SEC D-Dimer High Sensitivty < 150 NG/ML Sodium 141 (135-145) mmol/L Potassium 3.8 (3.3-5.1) mmol/L Chloride 110 H (96-108) mmol/L Carbon Dioxide 23 (22-29) mmol/L Anion Gap 12 (12-20) BUN 8 L (9-16) mg/dL Creatinine 0.76 (0.5-1.4) mg/dL Estim Creat Clear Calc 157.3 Estimated GFR > 60 Random Glucose 105 (60-115) mg/dL Calcium 9.5 (8.4-10.2) mg/dL Magnesium 2.0 (1.6-2.6) mg/dL Total Bilirubin 0.3 (0.0-1.0) mg/dL Direct Bilirubin 0.1 (0.0-0.5) mg/dL AST 34 (5-37) U/L ALT 70 H (0-40) U/L Alkaline Phosphatase 74 (39-117) U/L Troponin I High Sens < 2.7 < 2.7 (<3.5-35.0) ng/L Total Protein 6.7 (6.5-8.0) g/dL Albumin 4.6 (3.5-5.0) g/dL Influenza Type A (PCR) NEGATIVE (Negative) Influenza Type B (PCR) NEGATIVE (Negative) RSV RNA Qual (PCR) NEGATIVE (Negative) SARS-CoV-2 RNA (RT-PCR) NEGATIVE (Negative) Independent Interpretation I performed an independent interpretation of an: EKG (Normal sinus rhythm) and Plain X-Ray Independent Historian Clinical information obtained from an independent historian. History obtained from or confirmed by: Spouse (Spouse) and Other (Patient) Prescription Management I considered prescription management with: Pain Medication Discharge Plan Discharge Clinical Impression: Chest pain Patient Disposition: Home, Self-Care Instructions: Chest Pain (ED) Additional Instructions: Recommend follow-up with primary care provider. Return to the ED immediately for any shortness of breath, chest pain, leg swelling, calf pain, coughing up blood, chest pain on inspiration, numbness/tingling/paralysis of upper and lower extremities, severe neck pain, slurred speech, facial droop, paralysis of extremities, or any other concerning symptoms. Referrals: Tristin Can MD [Primary Care Provider, Medical] - 2 days Referral Note: Chest pain Clinical Impression: Chest pain Stand Alone Forms: Work/School Release Interventions: ED Discharge Assessment Last Done: 10/19/24 20:47 Discharge Date/Time: 10/19/24 20:47 Print Language: Faroese
[2024-10-19 11:15] LABS: MANUAL DIFF FLAG NO
[2024-10-19 11:18] LABS: Basophils Percent Auto 0.4 % (0-2); Eosinophils Absolute Auto 0.3 X10*3/uL (0.0-0.4); Eosinophils Percent Auto 3.9 % (0-4); Hematocrit 41.9 % (42.0-52.0); Hemoglobin 14.7 g/dl (14.0-18.0); Imm Gran Abs Auto 0.04 X10*3/uL (0.00-0.03); Imm Gran Pct Auto 0.5 % (0.0-0.4); Lymphocytes Absolute Auto 1.3 X10*3/uL (1.2-4.9); Lymphocytes Percent Auto 16.8 % (20-40); Mean Corpuscular HGB Conc 35.1 g/dl (31.0-36.0); Mean Corpuscular Hemoglobin 29.6 pg (27.0-33.0); Mean Corpuscular Volume 84.3 fL (80.0-98.0); Mean Platelet Volume 8.9 fL (9.4-12.4); Monocytes Absolute Auto 0.6 X10*3/uL (0.1-1.2); Monocytes Percent Auto 7.5 % (2-11); Neutrophils Absolute Auto 5.3 x10*3/uL (2.0-8.3); Neutrophils Percent Auto 70.9 % (45-73); Platelet Count 278 X10*3/uL (160-400); Red Blood Count 4.97 X10*6/uL (4.60-5.80); Red Cell Distribution Width 13.3 % (11.0-16.0); White Blood Count 7.4 X10*3/uL (4.8-10.8)
[2024-10-19 11:31] LABS: Alanine Aminotransferase 70 U/L (0-40); Albumin Level 4.6 g/dL (3.5-5.0); Alkaline Phosphatase 74 U/L (39-117); Anion Gap 12 (12-20); Aspartate Amino Transferase 34 U/L (5-37); Bilirubin Direct 0.1 mg/dL (0.0-0.5); Bilirubin Total 0.3 mg/dL (0.0-1.0); Blood Urea Nitrogen 8 mg/dL (9-16); Calcium 9.5 mg/dL (8.4-10.2); Carbon Dioxide 23 mmol/L (22-29); Chloride 110 mmol/L (96-108); Creatinine Clr Calc Pharmacy 157.3; Estimated Glomerular Filt Rate > 60; Glucose Random 105 mg/dL (60-115); Potassium 3.8 mmol/L (3.3-5.1); Sodium 141 mmol/L (135-145); Total Protein 6.7 g/dL (6.5-8.0)
[2024-10-19 11:45] LABS: Troponin-I High Sensitivity < 2.7 ng/L (<3.5-35.0)
[2024-10-19 12:07] LABS: Influenza A PCR NEGATIVE (Negative); Influenza B PCR NEGATIVE (Negative); Resp Syncy Virus RNA Qual PCR NEGATIVE (Negative); SARS COV2 PCR INHOUSE NEGATIVE (Negative)
--- OUTSIDE RECORDS SUMMARY | 2024-10-19 12:43 | XMS_ITS | Data Portability ---
Author Organization [facility], Telehealth Patient Home Address [address] [place] [address] Assessment Encounter Date Assessment Date Assessment LastModified by Organization Details LastModified Time 04/11/2021 04/11/2021 Patient agreed and verbally consents to this audio and video Telehealth appt via a secure platform [email or web address] Not available 04/11/2021 09:45:50 05/09/2021 05/09/2021 Patient agreed and verbally consents to this audio and video Telehealth appt via a secure platform [email or web address] Not available 05/09/2021 16:19:37 Plan of Treatment Reminders Order Date Submit Date Provider Last Modified By Organization Details Last Modified Time Details Appointments None recorded. Lab vitamin B12 + folate, serum or blood 2022 023 [facility], [address] [place] [address], [address], 3 10:00:33 zinc, serum or plasma [address] [facility], [address] [place] [address], [address], 3 11:33:43 vitamin B6 (pyridoxin e), plasma 2022 023 [facility], [address] [place] [address], [address], 3 10:00:33 CMP, serum or plasma [address] [facility], [address] [place] [address], [address], 3 11:28:14 lipid panel, blood 2022 023 [facility], [address] [place] [address], [address], 3 08:18:49 CBC w/ auto diff 2022 023 [facility], [address] [place] [address], [address], 3 10:00:33 hemoglobin A1c, QN, blood 2022 023 [facility], [address] [place] [address], [address], 3 10:00:33 PSA, total + free, serum or plasma 2022 023 [facility], [address] [place] [address], [address], 3 10:00:33 lipid panel, serum 2022 023 [facility], [address] [place] [address], [address], 3 10:00:33 TSH + free T4, serum 2022 023 [facility], [address] [place] [address], 10[address], 3 10:00:32 vitamin D, 25-hydroxy , total, serum 2022 023 [facility], [address] [place] [address], [address], 3 10:00:33 testostero ne, free + total, serum [address] [facility], [address] [place] [address], [address], 3 11:28:22 magnesium, serum or plasma 2022 023 [facility], [address] [place] [address], [address], 3 10:00:32 iron + TIBC + ferritin, serum 2022 023 [facility], [address] [place] [address], [address], 3 10:00:33 Referral endocrinol ogy referral 2020 021 [email or web address] Gao DO, [address] , [place], [address], 1 14:01:35 dermatolog ist referral 2020 021 [email or web address] Crawley MD, [address] [place] [address], [place], [address], 1 08:08:25 dermatolog ist referral 2020 021 [email or web address] [address] [facility], [address] , [place], [address], 1 08:10:47 Procedures None recorded. Surgeries None recorded. Imaging XR, cervical spine, 2 or 3 view 2020 021 [facility], [address] , [place], [address], 1 08:58:37 US, carotid artery 2020 021 [email or web address] Not available 16:37:35 Medication Orders doxycyclin e hyclate 100 mg tablet 2022 023 [id number], [address] [facility], [place], [address], 3 09:47:11 metoprolol succinate ER 100 mg tablet,ext ended release 24 hr 2021 022 [email or web address] [id number], [address], [place], [address], 2 09:43:13 metoprolol succinate ER 25 mg tablet,ext ended release 24 hr 2020 021 [email or web address] [id number], [address] [place], [address], 3 09:29:53 Patient TargetsNo targets recorded. Patient InstructionsNo instructions recorded. Reason for Referral [employer] Referral for S enile hyperkeratosis SK on upper mid back, middle of the back Referring Physician: Chanelle Gardner, Internal Medicine, Encounter Date: 10/04/2020 [employer] Referral for S kin tag skin tags and other moles he would like to have evaluated Referring Physician: Chanelle Gardner, Internal Medicine, Encounter Date: 01/04/2021 Endocrinology Referral for T estosterone level below reference range would like to discuss testosterone implant, has hx low testosterone Referring Physician: Chanelle Gardner [facility], Encounter Date: 01/04/2021 Results Created Date Observation Date Name Description Value Unit Range Abnormal Flag Note LastModifiedBy Organization Detail LastModifiedTime 04/13/20 21 04/13/2021 XR, cervi mala spine , 2 or 3 view No observ ation record ed. [email or web address] [facility] [address] [place], [address], 04/14/2021 11:59:36 04/13/20 21 04/13/2021 US, gaurav id arter y No observ ation [facility] ed[email or web address] [address] [place], [address], 04/14/2021 10:06:13 04/21/20 21 04/21/2021 MRI, cervi mala spine , w/o contr ast No observ ation record ed. [facility] [address] [facility], [place], [address], 04/24/2021 15:16:49 10/20/19 25 10/19/2024 XR, chest , 2 view No observ ation record ed. [email or web address] [facility] (Medical Records) [address] [facility], [place], [address], 10/19/2024 11:39:53 Result Notes None recorded. 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 Procedures Surgical History Date Name Laterality Status Provider Name and Address Organization Details Recorded Time removal of pilonidal cyst completed Jen Davies [facility] 12/04/2019 14:00:09 Imaging Results None recorded. Procedure Notes None recorded. Medical Equipment None Reported. Allergies Allergen ID Allergen Name Allergen Category Reaction Reaction Severity Criticality Documentation Date Start Date Code Code System Note Provider Name and Address Organization Details Recorded Time 4219 influenza virus vaccine, specific Not available rash Not available Not available 04/15/2020 07020 UNK Jen bellamy [facility] 0 10:13:34 6889 amlodipin e medicatio n chest pain severe high 10/01/2022 83047 RxNorm Loreto Schwartz [facility] 3 09:29:29 Medications Name Sig Start Date Stop Date Status Note LastModified by Organization Details LastModified Time metoprolol succinate ER 100 mg tablet,exten ded release 24 hr TAKE 1 TABLET BY MOUTH EVERY DAY FOR 30 DAYS 05/31 completed Not Available Not Available Not Available amlodipine 2.5 mg tablet 10/01 completed Not Available Not Available Not Available cephalexin 500 mg capsule TAKE 1 CAPSULE BY MOUTH THREE TIMES A DAY FOR 7 DAYS 01/04 completed Not Available Not Available Not Available lisinopril 10 mg tablet TAKE 1 TABLET DAILY 04/24 completed Not Available Not Available Not Available metoprolol succinate ER 25 mg tablet,exten ded release 24 hr TAKE 2 TABLETS BY MOUTH EVERY DAY 10/01 completed Not Available Not Available Not Available doxycycline hyclate 100 mg tablet Take 1 tablet twice a day by oral route for 20 days. 2022 active Not Available Not Available Not Avai lable testosterone TRT- injects twice per week 10/04 completed Not Available Not Available Not Available Vitals Date Recorded Body height Body mass index (BMI) Body weight Heart rate Oxygen saturation Oxygen saturation in Arterial blood by Pulse oximetry Systolic blood pressure Diastolic blood pressure Provider Name and Address Organization Details Last Updated DateTime 3 182.88 cm 31.2 kg/m2 945524. 25 g 68 /min 97 % 97 % 120 mm[Hg] 70 mm[Hg] Loreto Schwartz [facility] 3 09:37:17 Date Recorded Body height Body mass index (BMI) Body weight Oxygen saturation Oxygen saturation in Arterial blood by Pulse oximetry Heart rate Systolic blood pressure Diastolic blood pressure Provider Name and Address Organization Details Last Updated DateTime 1 182.88 cm 31.6 kg/m2 184435. 02 g 98 % 98 % 90 /min 120 mm[Hg] 76 mm[Hg] Arcelia Brown [facility] 1 09:15:26 Date Recorded Body height Body mass index (BMI) Body weight Heart rate Oxygen saturation Oxygen saturation in Arterial blood by Pulse oximetry Systolic blood pressure Diastolic blood pressure Provider Name and Address Organization Details Last Updated DateTime 1 182.88 cm 32.2 kg/m2 367264. 55 g 73 /min 98 % 98 % 118 mm[Hg] 76 mm[Hg] MARTIN ROGER [address] [place], [address], MD - [facility] 1 08:56:01 Social History Question Answer Notes LastModified by Organizat ion Details LastModified Time Tobacco Smoking Status Never Smoker Not Available [facility]/01/2020 03:36:24 What Was The Date Of Your Most Recent Tobacco Screening? 10/01/2022 [email or web address] Information not available 10/01/2022 Sex: Unknown Functional Status Question Answer Note LastModified by Organizat ion Details LastModified Time Do you use any illicit or recreational drugs? No [email or web address] Information not available 10/01/2022 Mental Status None recorded. Family History Nothing Reported. Medical History No medical history recorded. Past Encounters Encounter ID Performer Location Encounter Start Date Encounter Closed Date Diagnosis/Indication Diagnosis SNOMED-CT Code Diagnosis ICD10 Code Diagnosis Note [id number] Tristin Can [facility] [address] [facility],[place] [address] 12/08/2019 13:50:31 12/08/2019 14:37:18 Chest pain 28664164 R07.9 will work up patient and fu after results Paresthesi a of upper limb 67820154 R20.2 will check neck has had several neck injuries in the past [id number] Tristin Can [facility] [address] [facility], [place] [address] 01/08/2020 11:16:04 01/08/2020 14:15:47 Hypertensive disorder 08508864 I10 will stop metoprolol and start lisinopril and see if improvemen t will fu in a month Pain of sh oulder region 17290260 M25.519 will check shoulder first with XR and see if could explain MSK pain in left shoulder and left chest will fu with MRI if needed [id number] Tristin Can [facility] [address] [facility], [place] [address] 04/15/2020 10:09:01 04/15/2020 11:12:26 Long-term current use of testosterone replacement therapy 5421949136 9101 Z79.890 will recheck his testostero ne Atypical chest pain 1025 67744 R07.89 [place] [id number] Tristin Can [facility] [address] [facility],[place] [address] 10/04/2020 09:04:08 10/04/2020 11:52:46 Strain of left pectoral muscle 2360847912 5988210 S29.011S possible tear hx of damage to his left shoulder already, possible weaker Glenoid labrum tear 2022 94676 S43.432D resolved 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 [place] [id number] [facility] [address] [facility], [place] [address] 01/04/2021 08:48:12 01/04/2021 15:12:32 Hypertensive disorder 44349570 I10 will stop medication and just monitor off the medication Skin tag 039763394 L91.8 will fu with dermatolog ist Testostero ne level below reference range 281004414 R79.89 will set up with endo [id number] Tristin Can [facility] [address] [facility], [place] [address] 04/11/2021 08:06:22 04/11/2021 09:52:41 Neck pain 89348612 M54.2 will fu with repeat XR and MRI Atypical chest pain 1025 87972 R07.89 not related to testerone or true cardiac nature Palpitations 78688049 R0 0.2 will fu with carotid US as well Essential hypertension 18895889 I10 will monitor heart rate, BP and if he has skipped beats [id number] Tristin Can [facility] [address] [facility],[place] [address] 05/09/2021 08:11:08 05/09/2021 16:54:29 Essential hypertension 31671222 I10 will monitor heart rate, BP and if he has skipped beats [id number] Tristin Can, [facility] [address] [facility],[place] [address] 10/01/2022 09:14:11 10/01/2022 10:46:02 Infection of tick bite 849473317 W57.XXXA had doxycyclin e and tick panel done by , still waiting on some resultsagr eed to extending his doxycyclin e another 20 days Geographic tongue 702210 01 K14.1 developed after the tick bite Adult heal th examination 913857150 Z00.00 will set up with lab work Fatigue 37452473 R53.83 agreed to work up with labs Health Concerns Section Related Observation LastModified by Organization Detai ls LastModified Time None Recorded Concern Status LastModified by Organization Details LastModified Time None Recorded Advance Directives Directive None Recorded Payers Insurance Date Sequence Insurance Name Policy Number Policy Boyce Covered Member ID Boyce Member ID Guarantor Name 09/28/[address] [facility] [id number] Bobby Peters [id number] Bobby Peters Notes Date Note Type Note Provider Name a nd Address Organization Details Recorded Time 1 text/html 3 mo FU today in the office the patient BP is 120/76 the patient is doing well on the BP medication with no side effects and no adjustment of their medications needed today at the appointment well-controlled on medication denies chest pain, sob, ankle swelling, orthopnea, palpitations the patient reports that he has not having the chest pain, but has been off the testosterone for a while due to concern for it causing his chest pain though with the chest pain, the patient reports the pain is in his left shoulder and his chest muscles (pectoralis major and minor, left side) the patient would like to hold off the ortho referral as 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 that has most of his attention and because he has been off the T he has not been exercising as much, which means he is getting the pain ie push ups, and extension of the left arm for long periods of time ie driving MARTIN ROGER [address] [facility], [place], [address], [facility] 10/04/2020 09:38:04 1 text/html 6 mo fu HTN: the patient BP is not taking his lisinopril as his insurance switched to [employer] and he waited about two weeks for his pills to come so he was monitoring his BP which has been low Today in the office the patient BP is 118/76 the patient is doing well without the BP medication the patient reports that he will continue without the medication and monitoring his BP denies chest pain, sob, ankle swelling, orthopnea, palpitations Food: may be having allergic reactions to BBQ sauce and blueberries, suggested avoiding the food skin tags, moles: the patient reports that he would like to have his skin tags removedwill set up with derm chest pain: non-cardiac, has seen cardio and done full work [facility]as [facility] and derm MARTIN ROGER [address] [place], [address], [facility] 01/04/2021 09:15:30 1 text/html c/o heart issues, ER fu tele-med the patient went to the ER for fu after atypical chest painthe patient has been working outdeveloped chest pain and fluctuating heart rateER states that he has skipped beats and an elevated BPthe patient reports he quit smoking pot 4 days ago the patient reports he did so due to the skipped beatsthe patient thinks he may have cervical angina the patient restarted his lisinoprilwill stop and start on metoprolol for skipped beats and heart rate control MARTIN ROGER [address] [facility], [place], [address], [facility] 04/11/2021 09:52:13 2 text/html c/o BP elevated telemed phone callphone call consents the patient reports elevated BP ranging from 140-180/100the patient reports that he is currently in the ER during this callstates he developed chest pain and his HR was fluctuating rapidly from 70 BPM to 130 BPMcurrently roomed in an ER in [place], has a school bus monitor onhis BP is down to 135/100 have not started him on anything for his BP yet, seems to be decreasing on its ownwill increase for 100 mg (was taking two 25 mg per instructions) and fu tomorrow if he is d/c tonightif they alter his medications with fu with him on that ER doctor suggested that it could be a vascular or neurological abnormality after discussing his case MARTIN ROGER [address] [place], [address], [facility] 05/09/2021 16:24:20 3 text/html c/o tick bites the patient just recently bought a farm, has been working outside a lot lately and therefore exposed to several ticks the patient reports that he probably had two to three to four ticksthe patient was given doxycycline for 10 days HTN: today in the office the patient BP is 120/70 L arm sittingthe patient is doing wellwell-controlled w/o medicationdenies chest pain, sob, ankle swelling, orthopnea, palpitations had not needed his medicationdoing well; MSK chest pain as described in previous appointments (cardiac work up is so normal) the patient and I discussed his stress about his sister (she has severe mental health issues) would like a full panel work-up as well since he hasn't had blood work [facility] in [facility] being [place] a farm agreed some additional testing MARTIN ROGER [address] [place], [address], [facility] 10/01/2022 10:04:19
[2024-10-19 12:52] VITALS: BP 128/80; PULSE 66; RESP 18; TEMP 36.8; O2SAT 97
--- NOTE | 2024-10-19 13:02 | PC.NURSE ---
This Nurse Obtained 20G IV access in Left forearm, Pt placed on Picking Machine Operator VS updated, VS WNL, patient offered a blanket at this time he denied the blanket, call rueda within reach.
[2024-10-19 15:08] LABS: INTERNATIONAL NORM RATIO 0.9 (0.9-1.1); Prothrombin Time 10.2 SEC (10.9-12.4)
[2024-10-19 15:11] LABS: Partial Thromboplastin Time 31.4 SEC (26.0-36.8)
[2024-10-19 15:30] LABS: Troponin-I High Sensitivity < 2.7 ng/L (<3.5-35.0)
[2024-10-19 15:34] LABS: D Dimer High Sensitivity < 150 NG/ML
[2024-10-19 15:53] VITALS: BP 138/84; PULSE 64; RESP 15; O2SAT 96
[2024-10-19 18:00] VITALS: BP 145/97; PULSE 66; RESP 17; O2SAT 96
[2024-10-19] MEDS: iohexoL 350 MG/ML 100 ML INFUS..BTL 70 ML IV (19:26)
[2024-10-19 20:17] VITALS: BP 144/95; PULSE 55; RESP 15; O2SAT 95
[2024-10-19 20:47] VITALS: BP 144/95; PULSE 55; RESP 15; TEMP -17.7; TEMP 0; O2SAT 95
== END 2024-10-19 20:47 | disposition home or self-care (01) ==
PROVIDERS: Physician Assistant; Physician Assistant Medical; Emergency Provider Emergency Medicine; PCP Internal Medicine
DX: R07.89 Other chest pain (principal); I49.8 Other specified cardiac arrhythmias; R68.84 Jaw pain; R51.9 Headache, unspecified; Z03.818 Encounter for observation for suspected exposure to other biological agents ruled out; Z79.899 Other long term (current) drug therapy
CPT/HCPCS: 0241U; 36415; 70496; 70498; 71046; 80048; 80076; 83735; 84484; 85025; 85379; 85610; 85730; 93005; 99284; 99285; Q9967

== ENCOUNTER → 2024-10-19 10:26 | Outpatient (BNV) | payer BC, SELFPAY | PROVIDERS: Emergency Provider Emergency Medicine; PCP Internal Medicine; Visit Provider Internal Medicine | DX: R07.89 Other chest pain (principal) | CPT/HCPCS: 93010 ==

== ENCOUNTER → 2024-10-19 10:58 | Outpatient (BNV) | payer BC, SELFPAY | PROVIDERS: PCP Internal Medicine; Visit Provider Radiology Diagnostic Radiology | DX: I77.71 Dissection of carotid artery (principal); R07.9 Chest pain, unspecified | CPT/HCPCS: 70496; 70498; 71046 ==